=== PATIENT | male | born 1930 | race Two or more races ===

== ENCOUNTER 2017-05-25 00:22 | Inpatient (IN) | payer MEDICARE, OTHER ==
[~2017-05-25] VITALS: Ht 160 cm; Wt 77.1 kg
[2017-05-25] MEDS ORDERED: AMLO5TAB2 PO (00:43)
[2017-05-25] MEDS ORDERED: metoprolol PO (00:43)
[2017-05-25] MEDS ORDERED: TAMS-3 PO (00:43)
[2017-05-25] MEDS ORDERED: RANI150T12 PO (00:43)
[2017-05-25] MEDS ORDERED: NATE120T PO (00:43)
[2017-05-25] MEDS ORDERED: DIPH25CA83 PO (00:43)
[2017-05-25] MEDS ORDERED: ESCI20TA PO (00:43)
[2017-05-25] MEDS ORDERED: TRAZ-144 PO (00:43)
[2017-05-25] MEDS ORDERED: INSU100C SUBCUT (00:43)
[2017-05-25] MEDS ORDERED: ZOLP5TAB2 PO (00:43)
[2017-05-25] MEDS ORDERED: INSU100V7 SQ (00:43)
[2017-05-25] MEDS ORDERED: NYST15CR15 TP (00:43)
[2017-05-25] MEDS ORDERED: FINA5TAB3 PO (00:43)
[2017-05-25] MEDS ORDERED: ASPI-605 PO (00:43)
[2017-05-25] MEDS ORDERED: ACAR50TA PO (00:43)
[2017-05-25] MEDS ORDERED: PRAV80TA PO (00:43)
[2017-05-25] MEDS ORDERED: MEMA10TA PO (00:43)
[2017-05-25] MEDS ORDERED: ACET-73 PO (00:43)
[2017-05-25] MEDS ORDERED: BETH10TA8 PO (00:43)
[2017-05-25] MEDS ORDERED: ALPR0.5T8 PO (00:43)
[2017-05-25] MEDS ORDERED: FLUO15OI TP (00:43)
[2017-05-25] MEDS ORDERED: BISA-79 PO (00:43)
[2017-05-25] MEDS ORDERED: ERGO2000 PO (00:43)
--- NOTE | 2017-05-25 00:43 | NUR ---
medically cleared by Dr Castellano
--- NOTE | 2017-05-25 01:08 | NUR ---
tRANSFERED TO [facility]
[2017-05-25] MEDS ORDERED: MAGNESIUM HYDROXIDE 30 ML LIQUID UDC PO PRN (01:15)
[2017-05-25] MEDS ORDERED: MAG HYDROX/AL HYDROX/SIMETH 30 ML LIQUID UDC PO PRN (01:15)
[2017-05-25] MEDS ORDERED: ZOLPIDEM 5 MG TABLET PO PRN (01:15)
[2017-05-25] MEDS ORDERED: LORAZEPAM 1 MG TABLET PO PRN (01:15)
[2017-05-25 01:30] VITALS: BP 128/65
--- NOTE | 2017-05-25 01:30 | NUR ---
received to care, from the emergency room, on a 72 hour hold, for danger to self, a transfer from [facility]. according to the chart, he was admitted there for "hypoglycemia". upon discharge, he verbalized SI to staff. he has a recent history of his son dying 3 years ago, and he is from his for the last year. upon arrival, he was calm and cooperative. is mostly farsi speaking. able only to answer simple questions. farsi developer programmer unavailable, even by translation phone. currently up in wheel chair at nurses station.
[2017-05-25] MEDS: ACETAMINOPHEN 325 MG TABLET PO PRN ×2 (03:06→20:36)
[2017-05-25] MEDS ORDERED: ACETAMINOPHEN 325 MG TABLET ONE (03:18)
--- NOTE | 2017-05-25 06:00 | NUR ---
slept 1.5 hours total. is now awake. 1;1m sitter at side, for safety. will continue to monitor closely.
[2017-05-25 07:30] VITALS: BP 127/67
[2017-05-25] MEDS: VENLAFAXINE XR 75 MG CAP.SR.24H PO SCH (11:18)
[2017-05-25] MEDS ORDERED: DEXTROSE 50% 50 ML DISP.SYRIN IV PRN (13:45)
[2017-05-25] MEDS ORDERED: BISACODYL 5 MG TABLET.DR PO PRN (13:45)
[2017-05-25] MEDS ORDERED: Medication Not On Formulary EA (Diphenhydramine Hcl (Benadryl) 25 MG) PO PRN (13:45)
[2017-05-25] MEDS ORDERED: diphenhydrAMINE 25 MG CAP PO PRN (14:30)
--- NOTE | 2017-05-25 15:30 | NUR ---
TRANSFERED TO [facility]LO[facility]
[2017-05-25] MEDS: BLOOD SUGAR DIAGNOSTIC 1 EACH STRIP VI SCH ×2 (16:30→20:42)
[2017-05-25] MEDS: NYSTATIN/TRIAMCINOLONE CREAM 15 GM TUBE TP SCH (17:00)
[2017-05-25] MEDS: BETHANECHOL CHLORIDE 10 MG TABLET PO SCH (17:13)
--- NOTE | 2017-05-25 18:49 | NUR ---
PT SLEEPING IN BED, IN NO ACUTE DISTRESS. PT DID NOT WANT TO EAT DINNER 1630 BS 228, INSULIN NOT GIVEN DUE TO PT NOT WANTING TO EAT AND INITIAL DX HYPOGLYCEMIA. ACCUCHECK HS, WILL ENDORSE TO [facility]. 1:1 SITTER MAINTAINED, ALL SAFETY AND COMFORT MEASURES ATTENDED TO.
--- NOTE | 2017-05-25 19:35 | NUR ---
PT RECEIVED IN BED, AWAKE. A/OX3. ABLE TO MAKE NEEDS KNOWN. 1:1 SITTER AT BEDSIDE FOR SAFETY. V/S STABLE. IN NO ACUTE DISTRESS. NO C/O PAIN AT THIS TIME. NO IV IN PLACE. SAFETY MEASURES IMPLEMENTED. CALL LIGHT WITHIN REACH.
[2017-05-25 20:34] VITALS: BP 155/67
[2017-05-25] MEDS: AMLODIPINE 5 MG TABLET PO SCH (20:36)
[2017-05-25] MEDS: ATORVASTATIN 20 MG TABLET PO SCH (20:36)
[2017-05-25] MEDS: MEMANTINE HCL 10 MG TABLET PO SCH (20:37)
[2017-05-25] MEDS: TRAZODONE 50 MG TABLET PO SCH (20:37)
[2017-05-25] MEDS: METOPROLOL TARTRATE 25 MG TABLET PO SCH (20:38)
[2017-05-25] MEDS: FLUOCINONIDE 0.05% OINT 15 GM TUBE TP SCH (20:38)
[2017-05-25] MEDS: INSULIN REGULAR, HUMAN 300 UNITS/3 ML VIAL SQ PRN (20:47)
[2017-05-25] MEDS: INSULIN DETEMIR 300 UNIT/3 ML CARTRIDGE SQ SCH (20:48)
[2017-05-25] MEDS ORDERED: PRAVASTATIN SODIUM 80 MG PO SCH (21:00)
[2017-05-26 06:40] LABS: EOSINOPHILS # (AUTO) 0.4 K/uL (0.0-0.7); EOSINOPHILS % (AUTO) 4.2 % (0.0-7.0); HEMATOCRIT 36.8 % (40-50); HEMOGLOBIN 12.4 G/DL (14.0-18.0); LYMPHOCYTES # (AUTO) 1.4 K/UL (0.8-4.8); LYMPHOCYTES % (AUTO) 14.2 % (20.5-51.5); MEAN CORPUSCULAR HEMOGLOBIN 30.2 UUG (27.0-31.0); MEAN CORPUSCULAR HGB CONC 34 g/dL (32.0-37.0); MONOCYTES # (AUTO) 0.9 K/UL (0.1-1.30); NEUTROPHILS % (AUTO) 72.6 % (38.5-71.5); PLATELET COUNT (AUTO) 179 K/UL (150-450); RED BLOOD CELL COUNT(AUTO) 4.09 MIL/UL (4.7-6.1); WHITE BLOOD COUNT (AUTO) 9.7 K/UL (4.0-11.2)
[2017-05-26] MEDS: BLOOD SUGAR DIAGNOSTIC 1 EACH STRIP VI SCH ×4 (06:45→20:43)
--- NOTE | 2017-05-26 06:45 | NUR ---
END OF SHIFT NOTES. PT SLEPT 7 HOURS DURING SHIFT. IN STABLE CONDITION. ADMIN TYLENOL FOR PT C/O HEADACHE. PT STATES RELIEF OF PAIN. SITTER REMAINS AT BEDSIDE FOR SAFETY. ALL NEEDS ATTENDED. CALL LIGHT WITHIN REACH.
[2017-05-26 06:47] LABS: THYROID STIMULATING HORMONE 1.448 mIU/mL (0.358-3.740)
[2017-05-26 07:32] LABS: ALANINE AMINOTRANSFERASE 51 U/L (16-63); ALKALINE PHOSPHATASE 84 U/L (50-136); ASPARTATE AMINOTRANSFERASE 29 U/L (15-37); BILIRUBIN,TOTAL 0.2 mg/dL (0.2-1.0); CARBON DIOXIDE 26 mmol/L (21-32); CHLORIDE 107 mmol/L (98-107); CREATININE 1.9 mg/dL (0.6-1.3); GLUCOSE 80 mg/dL (74-106); MAGNESIUM 1.8 mg/dL (1.8-2.4); PHOSPHOROUS 4.8 mg/dL (2.5-4.9); POTASSIUM 4.7 mmol/L (3.5-5.1); UREA NITROGEN, BLOOD 36 mg/dL (7-18)
[2017-05-26 08:05] VITALS: BP 142/57
[2017-05-26] MEDS: METOPROLOL TARTRATE 25 MG TABLET PO SCH ×2 (08:35→20:19)
[2017-05-26] MEDS: ASPIRIN EC 81 MG TABLET.DR PO SCH (08:35)
[2017-05-26] MEDS: FINASTERIDE 5 MG TABLET PO SCH (08:35)
[2017-05-26] MEDS: MEMANTINE HCL 10 MG TABLET PO SCH ×2 (08:35→20:18)
[2017-05-26] MEDS: VENLAFAXINE XR 75 MG CAP.SR.24H PO SCH (08:36)
[2017-05-26] MEDS: AMLODIPINE 5 MG TABLET PO SCH ×2 (08:36→20:19)
[2017-05-26] MEDS: BETHANECHOL CHLORIDE 10 MG TABLET PO SCH ×3 (08:39→20:18)
[2017-05-26] MEDS ORDERED: ASPIRIN EC 81 MG TABLET.DR PO SCH (09:00)
[2017-05-26] MEDS ORDERED: TAMSULOSIN HCL 0.4 MG CAP.SR.24H PO SCH (09:00)
[2017-05-26 12:15] VITALS: BP 151/61
[2017-05-26] MEDS: NYSTATIN/TRIAMCINOLONE CREAM 15 GM TUBE TP SCH ×2 (12:51→18:47)
[2017-05-26] MEDS: INSULIN REGULAR, HUMAN 300 UNIT/3 ML VIAL SQ PRN (12:58)
--- NOTE | 2017-05-26 14:15 | NUR ---
Initial DC Plan: Patient arrived from [facility] [[address] [place] [address]; ]. SW will follow up with MD, patient, and patient's family to discuss appropriate discharge plans. SW will form a safe and proper discharge.
[2017-05-26 16:05] VITALS: BP 125/60
[2017-05-26] MEDS: TRAZODONE 50 MG TABLET PO SCH (20:18)
[2017-05-26] MEDS: ATORVASTATIN 20 MG TABLET PO SCH (20:18)
[2017-05-26] MEDS: ACETAMINOPHEN 325 MG TABLET PO PRN (20:28)
[2017-05-26 20:32] VITALS: BP 138/74
[2017-05-26] MEDS: INSULIN REGULAR, HUMAN 300 UNITS/3 ML VIAL SQ PRN (20:45)
[2017-05-26] MEDS: INSULIN DETEMIR 300 UNIT/3 ML CARTRIDGE SQ SCH (20:47)
[2017-05-26] MEDS: FLUOCINONIDE 0.05% OINT 15 GM TUBE TP SCH (20:56)
[2017-05-27] MEDS: ZOLPIDEM 5 MG TABLET PO PRN ×2 (01:11→22:27)
[2017-05-27] MEDS ORDERED: ZOLPIDEM 5 MG TABLET ONE (01:22)
[2017-05-27] MEDS: BLOOD SUGAR DIAGNOSTIC 1 EACH STRIP VI SCH ×4 (06:39→20:39)
--- NOTE | 2017-05-27 10:00 | NUR ---
1030 RECEIVED PATIENT LYING IN BED REFUSED, AGITATED, ANGRY AND WANTING TO GO HOME. REFUSED BREAKFAST, REFUSED V/ S AND REFUSED MEDICATIONS DESPITE OF THE ENCOURAGEMENT AND EDUCATION. WILL TRY TO OFFER AGAIN.
[2017-05-27] MEDS: BETHANECHOL CHLORIDE 10 MG TABLET PO SCH ×2 (13:00→17:32)
[2017-05-27] MEDS: METOPROLOL TARTRATE 25 MG TABLET PO SCH ×2 (13:03→20:32)
[2017-05-27] MEDS: ASPIRIN EC 81 MG TABLET.DR PO SCH (13:03)
[2017-05-27] MEDS: FINASTERIDE 5 MG TABLET PO SCH (13:03)
[2017-05-27] MEDS: VENLAFAXINE XR 75 MG CAP.SR.24H PO SCH (13:03)
[2017-05-27] MEDS: MEMANTINE HCL 10 MG TABLET PO SCH ×2 (13:04→20:33)
[2017-05-27] MEDS: AMLODIPINE 5 MG TABLET PO SCH ×2 (13:04→20:33)
[2017-05-27] MEDS: NYSTATIN/TRIAMCINOLONE CREAM 15 GM TUBE TP SCH ×2 (13:11→17:32)
[2017-05-27 15:00] VITALS: BP 146/75
[2017-05-27] MEDS: ACETAMINOPHEN 325 MG TABLET PO PRN (15:05)
--- NOTE | 2017-05-27 15:36 | NUR ---
Director Of Child Welfare Services: CR submitted [employer] Mental [employer] Report to [employer] on 05/27.
[2017-05-27] MEDS: INSULIN REGULAR, HUMAN 300 UNIT/3 ML VIAL SQ PRN (17:30)
[2017-05-27] MEDS: ATORVASTATIN 20 MG TABLET PO SCH (20:33)
[2017-05-27] MEDS: TRAZODONE 50 MG TABLET PO SCH (20:33)
[2017-05-27] MEDS: FLUOCINONIDE 0.05% OINT 15 GM TUBE TP SCH (20:40)
[2017-05-27] MEDS: INSULIN REGULAR, HUMAN 300 UNITS/3 ML VIAL SQ PRN (20:44)
[2017-05-27] MEDS: INSULIN DETEMIR 300 UNIT/3 ML CARTRIDGE SQ SCH (20:44)
[2017-05-27 20:59] VITALS: BP 129/68
[2017-05-27] MEDS ORDERED: TAMSULOSIN HCL 0.4 MG CAP.SR.24H PO SCH (21:00)
[2017-05-28] MEDS: BLOOD SUGAR DIAGNOSTIC 1 EACH STRIP VI SCH ×2 (06:37→11:43)
[2017-05-28 07:03] LABS: BASOPHILS # (AUTO) 0.1 K/uL (0.0-8.0); BASOPHILS % (AUTO) 0.8 % (0.0-2.0); EOSINOPHILS % (AUTO) 13.7 % (0.0-7.0); HEMOGLOBIN 11.9 g/dL (12.5-16.3); LYMPHOCYTES # (AUTO) 1.6 K/uL (20.0-40.0); LYMPHOCYTES % (AUTO) 22.8 % (20.5-51.5); MEAN CORPUSCULAR HEMOGLOBIN 30.5 uug (23.8-33.4); MEAN CORPUSCULAR HGB CONC 34 g/dL (32.5-36.3); MEAN CORPUSCULAR VOLUME 89.4 fL (73.0-96.2); MONOCYTES # (AUTO) 0.8 K/uL (2.0-10.0); MONOCYTES % (AUTO) 11.7 % (0.0-11.0); NEUTROPHILS # (AUTO) 3.6 K/uL (1.8-8.9); PLATELET COUNT (AUTO) 169 K/uL (152-348); RED BLOOD CELL COUNT(AUTO) 3.91 MIL/uL (4.06-5.63)
[2017-05-28 07:18] LABS: ALANINE AMINOTRANSFERASE 38 U/L (16-63); ALKALINE PHOSPHATASE 79 U/L (50-136); ASPARTATE AMINOTRANSFERASE 17 U/L (15-37); BILIRUBIN,TOTAL 0.3 mg/dL (0.2-1.0); CARBON DIOXIDE 23 mmol/L (21-32); CHLORIDE 103 mmol/L (98-107); GLUCOSE 189 mg/dL (74-106); MAGNESIUM 1.7 mg/dL (1.8-2.4); PHOSPHOROUS 4.1 mg/dL (2.5-4.9); POTASSIUM 4.5 mmol/L (3.5-5.1); TOTAL PROTEIN, SERUM 7.2 g/dL (6.4-8.2); UREA NITROGEN, BLOOD 36 mg/dL (7-18)
[2017-05-28 07:30] VITALS: BP 113/76
[2017-05-28] MEDS: INSULIN REGULAR, HUMAN 300 UNIT/3 ML VIAL SQ PRN ×2 (08:04→11:36)
[2017-05-28] MEDS: FINASTERIDE 5 MG TABLET PO SCH (08:05)
[2017-05-28] MEDS: MEMANTINE HCL 10 MG TABLET PO SCH (08:06)
[2017-05-28] MEDS: AMLODIPINE 5 MG TABLET PO SCH (08:07)
[2017-05-28] MEDS: ASPIRIN EC 81 MG TABLET.DR PO SCH (08:07)
[2017-05-28] MEDS: BETHANECHOL CHLORIDE 10 MG TABLET PO SCH ×2 (08:07→12:00)
--- NOTE | 2017-05-28 08:10 | NUR ---
DC Note: Patient will be discharged to [facility] [[address] [place] [address]; ] via ambulance at 12pm. CR spoke with Berenice at the facility to confirm discharge plans. Patient is aware and agreeable to discharge plans. Patient's ex- Flori [[phone]] is aware and agreeable to discharge plans. Patient will follow up with Dr. Judd (Sociocultural Anthropology Professor) and Dr. Cardona (Psychiatrist).
[2017-05-28] MEDS: VENLAFAXINE XR 75 MG CAP.SR.24H PO SCH (08:11)
[2017-05-28 08:12] VITALS: BP 141/60
[2017-05-28] MEDS: METOPROLOL TARTRATE 25 MG TABLET PO SCH (08:12)
[2017-05-28] MEDS: NYSTATIN/TRIAMCINOLONE CREAM 15 GM TUBE TP SCH (08:13)
[2017-05-28] MEDS ORDERED: MAGNESIUM OXIDE 400 MG TABLET PO ONE (10:30)
[2017-05-28] MEDS ORDERED: INSULIN LISPRO 5 UNIT SUBCUT SCH (12:00)
[2017-05-28] MEDS ORDERED: Medication Not On Formulary EA (Nateglinide (Starlix) 120 MG) PO SCH (12:00)
--- NOTE | 2017-05-28 13:30 | NUR ---
Pt discharge to [facility] (assisted living) via ambulance. Pt was discharged with discharge paper work, exit care packet, prescriptions, all belongings and valuables. Pt denies suicidal ideation and contracts for safety inside and outside of the hospital. Pt v/s stable for d/c, calm, cooperative, groomed appropriately, and skin intact.
== END 2017-05-28 13:30 | DRG 885 ==
LOC: ER 00:33 → GPS 00:40 → EDBD 00:40 → MED 15:30 → GPSOV 15:30 → GPS 05-26 15:53
PROVIDERS: ADMIT Psychiatry & Neurology Psychiatry; ATTEND Internal Medicine
DX: F33.3 Major depressive disorder, recurrent, severe with psychotic symptoms (principal); N18.3 Chronic kidney disease, stage 3 (moderate); N17.0 Acute kidney failure with tubular necrosis; E11.65 Type 2 diabetes mellitus with hyperglycemia; F03.91 Unspecified dementia, unspecified severity, with behavioral disturbance; E44.0 Moderate protein-calorie malnutrition; J98.11 Atelectasis; E11.22 Type 2 diabetes mellitus with diabetic chronic kidney disease; G40.909 Epilepsy, unspecified, not intractable, without status epilepticus; E03.9 Hypothyroidism, unspecified; E78.5 Hyperlipidemia, unspecified; Z88.6 Allergy status to analgesic agent; Z91.018 Allergy to other foods; Z79.899 Other long term (current) drug therapy; Z86.011 Personal history of benign neoplasm of the brain; E66.9 Obesity, unspecified; Z68.30 Body mass index [BMI] 30.0-30.9, adult; I12.9 Hypertensive chronic kidney disease with stage 1 through stage 4 chronic kidney disease, or unspecified chronic kidney disease; Z79.4 Long term (current) use of insulin; D64.9 Anemia, unspecified; M19.90 Unspecified osteoarthritis, unspecified site; N40.1 Benign prostatic hyperplasia with lower urinary tract symptoms; R33.8 Other retention of urine; E83.42 Hypomagnesemia; I70.0 Atherosclerosis of aorta; E83.9 Disorder of mineral metabolism, unspecified; E67.8 Other specified hyperalimentation
CPT/HCPCS: 36415; 71010; 83735; 84100; 84443; 85025; 93005; 97116; 97530; A4663; J1815